=== PATIENT | female | born 1995 | race African-American/Black ===

== ENCOUNTER 2017-01-19 14:31 | Emergency (ER) | payer OTHER ==
[~2017-01-19] VITALS: Ht 185.4 cm; Wt 109.1 kg
[2017-01-19 14:34] VITALS: BP 122/78; TEMP 98.7
[2017-01-19 16:07] VITALS: PULSE 94
== END 2017-01-19 16:08 | disposition home or self-care (01) ==
LOC: COL.ER 14:31
DX: S93.401A Sprain of unspecified ligament of right ankle, initial encounter (principal); X50.0XXA Overexertion from strenuous movement or load, initial encounter

== ENCOUNTER 2017-12-05 14:25 | Emergency (ER) | payer OTHER ==
[~2017-12-05] VITALS: Ht 185.4 cm; Wt 113.6 kg
[2017-12-05 14:31] VITALS: TEMP 98.6
[2017-12-05 16:23] LABS: COLLECTION METHOD CLEAN CATCH
[2017-12-05 16:32] LABS: MUCOUS Present /lpf; PH 6 (5-8); URINE APPEARANCE Hazy; URINE BACTERIA Rare /hpf; URINE BILIRUBIN Negative (NEGATIVE); URINE BLOOD Negative (NEGATIVE); URINE COLOR Yellow; URINE GLUCOSE Negative (NEGATIVE); URINE KETONE Negative (NEGATIVE); URINE LEUKOCYTE ESTERASE Negative (NEGATIVE); URINE NITRATE Negative (NEGATIVE); URINE PROTEIN(semi-quant) 1+ (NEGATIVE); URINE UROBILINOGEN Negative (NEGATIVE)
[2017-12-05] MEDS ORDERED: FLEXERIL 1010 MG/TAB PO (17:17)
[2017-12-05 17:40] VITALS: BP 117/81; PULSE 100
== END 2017-12-05 17:40 | disposition home or self-care (01) ==
LOC: COL.ER 14:25
PROVIDERS: Nurse Practitioner
DX: M54.5 Low back pain (principal)
CPT/HCPCS: J1885; J2360